=== PATIENT | female | born 1960 | race African-American/Black ===

== ENCOUNTER 2017-11-17 11:26 | Emergency (ER) | payer SELFPAY ==
[2017-11-17] MEDS ORDERED: ASPIRIN 81 MG TABLET, CHEWABLE PO ONE (12:08)
--- NOTE | 2017-11-17 12:09 | ER Document Report ---
ED Medical Screen (RME) - General Chief Complaint: Chest Pain Stated Complaint: CHEST PAIN Time Seen by Provider: 11/17/17 12:03 Notes: RAPID MEDICAL EVALUATION DISCLOSURE I have seen this patient as part of a Rapid Medical Evaluation and, if applicable, placed any initially appropriate orders. The patient will be seen and fully evaluated, including a full history and physical exam, by a provider ( in Main ED or Fast Track) when a room becomes available. 57-year-old female here with left-sided chest pain shortness of breath lightheadedness ongoing since this morning. Pain is worse with breathing but has not really noticed much worsening with exertion. She has tried some Tums for the symptoms with some relief. Has a history of A. fib and heart murmur. She came in because the lightheadedness and shortness of breath was most concerning to her. Exam CTAB RRR TRAVEL OUTSIDE OF THE [place] IN LAST 30 DAYS: No Physical Exam - Vital signs Vitals: Temp Pulse Resp BP Pulse Ox 99.2 F 69 18 185/98 H 98 11/17/17 11:44 11/17/17 11:44 11/17/17 11:44 11/17/17 11:44 11/17/17 11:44 Course - Vital Signs Vital signs: Temp Pulse Resp BP Pulse Ox 99.2 F 69 18 185/98 H 98 11/17/17 11:44 11/17/17 11:44 11/17/17 11:44 11/17/17 11:44 11/17/17 11:44
[2017-11-17] MEDS ORDERED: NITROGLYCERIN 2% OINTMENT 1 GM PACKET TP ONE (13:13)
[2017-11-17] MEDS ORDERED: ACETAMINOPHEN 325 MG TABLET PO ONE (13:13)
[2017-11-17 13:19] LABS: ABSOLUTE BASOPHILS # (AUTO) 0.1 10^3/uL (0.0-0.2); ABSOLUTE EOSINOPHILS # (AUTO) 0.2 10^3/uL (0.0-0.6); ABSOLUTE LYMPHOCYTES (AUTO) 2.7 10^3/uL (0.5-4.7); ABSOLUTE MONOCYTES (AUTO) 0.5 10^3/uL (0.1-1.4); ABSOLUTE NEUT (AUTO) 4.7 10^3/uL (1.7-8.2); BASOPHILS % (AUTO) 0.7 % (0-2); EOSINOPHILS % (AUTO) 2.3 % (0-6); HEMATOCRIT 36.7 % (36.0-47.0); HEMOGLOBIN 12.1 g/dL (12.0-15.5); LYMPHOCYTES % (AUTO) 33.4 % (13-45); MEAN CORPUSCULAR HEMOGLOBIN 24.2 pg (27.0-33.4); MEAN CORPUSCULAR HGB CONC 32.9 g/dL (32.0-36.0); MEAN CORPUSCULAR VOLUME 74 fl (80-97); PLATELET COUNT 280 10^3/uL (150-450); RED BLOOD COUNT 4.98 10^6/uL (3.72-5.28); RED CELL DISTRIBUTION WIDTH 17.4 % (11.5-14.0); SEGMENTED NEUTROPHILS % (AUTO) 57.6 % (42-78); TOTAL CELLS COUNTED % (AUTO) 100 %; WHITE BLOOD COUNT 8.1 10^3/uL (4.0-10.5)
--- NOTE | 2017-11-17 13:26 | RADIOLOGY REPORT (SQ) ---
EXAM DESCRIPTION: CHEST 2 VIEWS COMPLETED DATE/TIME: 11/17/2017 12:50 pm REASON FOR STUDY: CP SOB COMPARISON: None. EXAM PARAMETERS: NUMBER OF VIEWS: two views TECHNIQUE: Digital Frontal and Lateral radiographic views of the chest acquired. RADIATION DOSE: NA LIMITATIONS: none FINDINGS: LUNGS AND PLEURA: No opacities, masses or pneumothorax. No pleural effusion. MEDIASTINUM AND HILAR STRUCTURES: No masses or contour abnormalities. HEART AND VASCULAR STRUCTURES: Heart normal size. No evidence for failure. BONES: No acute findings. HARDWARE: None in the chest. OTHER: No other significant finding. IMPRESSION: NO ACUTE RADIOGRAPHIC FINDING IN THE CHEST. TECHNICAL DOCUMENTATION: JOB ID: [id number] [employer]- All Rights Reserved Reading location - IP/workstation name: [email or web address]
[2017-11-17 13:41] LABS: ALANINE AMINOTRANSFERASE 28 U/L (9-52); ALBUMIN 4.2 g/dL (3.5-5.0); ALKALINE PHOSPHATASE 97 U/L (38-126); ANION GAP 10 (5-19); ASPARTATE AMINO TRANSFERASE 27 U/L (14-36); BILIRUBIN,DIRECT 0.4 mg/dL (0.0-0.4); BILIRUBIN,TOTAL 0.5 mg/dL (0.2-1.3); BLOOD UREA NITROGEN 12 mg/dL (7-20); CALCIUM 9.2 mg/dL (8.4-10.2); CARBON DIOXIDE 28 mmol/L (22-30); CHLORIDE 106 mmol/L (98-107); GLUCOSE 99 mg/dL (75-110); LIPASE 35.8 U/L (23-300); POTASSIUM 4.4 mmol/L (3.6-5.0); SODIUM 143.6 mmol/L (137-145); TOTAL PROTEIN 7.4 g/dL (6.3-8.2)
[2017-11-17] MEDS ORDERED: HYDRALAZINE HCL 25 MG TABLET PO ONE (14:39)
--- NOTE | 2017-11-17 14:39 | ER Document Report ---
ED Cardiac - General Chief Complaint: Chest Pain Stated Complaint: CHEST PAIN Time Seen by Provider: 11/17/17 12:03 Mode of Arrival: Ambulatory Information source: Patient Notes: Patient is a 57-year-old female with a history of A. fib and heart murmur who presents to the ER today for left sided chest pain that radiated up from her epigastric region and made her left arm numb and tingly that started at 10 AM this morning. Patient states that she was at rest during this time. Patient denies any radiation into the neck or back. Patient admits to some nausea and some mild shortness of breath with this but no vomiting. Patient used to be on medications for hypertension and hyperlipidemia but stopped them. Patient used to be on blood thinners but states she was taken off by her doctor in [place]. Patient moved here recently and has not followed up with anybody about her chronic medical conditions. Patient has never had a heart attack or stroke and has never been a smoker. Patient denies history of diabetes. TRAVEL OUTSIDE OF THE U[place] IN LAST 30 DAYS: No - Related Data Allergies/Adverse Reactions: Penicillins Allergy (Mild, Verified 11/17/17 12:09) Hives shellfish derived Allergy (Mild, Verified 11/17/17 12:09) Hives Past Medical History - General Information source: Patient - Social History Smoking Status: Never Smoker Chew tobacco use (# tins/day): No Frequency of alcohol use: None Drug Abuse: None Family History: Reviewed & Not Pertinent Patient has suicidal ideation: No Patient has homicidal ideation: No Renal/ Medical History: Denies: Hx Peritoneal Dialysis Review of Systems - Review of Systems Constitutional: No symptoms reported EENT: No symptoms reported Cardiovascular: See HPI Respiratory: No symptoms reported Gastrointestinal: No symptoms reported Genitourinary: No symptoms reported Female Genitourinary: No symptoms reported Musculoskeletal: No symptoms reported Skin: No symptoms reported Hematologic/Lymphatic: No symptoms reported Neurological/Psychological: No symptoms reported Physical Exam - Vital signs Vitals: Temp Pulse Resp BP Pulse Ox 99.2 F 69 18 185/98 H 98 11/17/17 11:44 11/17/17 11:44 11/17/17 11:44 11/17/17 11:44 11/17/17 11:44 - Notes Notes: PHYSICAL EXAMINATION: GENERAL: Well-appearing and in no acute distress. HEAD: Atraumatic, normocephalic. EYES: Pupils equal round and reactive to light, extraocular movements intact, sclera anicteric, conjunctiva are normal. ENT: Airway patent NECK: Normal range of motion, supple without lymphadenopathy LUNGS: CTAB and equal. No wheezes rales or rhonchi. HEART: Sternum and left chest tender to palpation, regular rate and rhythm without murmurs ABDOMEN: Soft, no tenderness. No guarding, no rebound BACK: no vertebral tenderness, normal ROM GI/: no CVA tenderness EXTREMITIES: Normal range of motion, no pitting edema. No cyanosis. NEUROLOGICAL: Cranial nerves grossly intact. Normal sensory/motor exams. PSYCH: Normal mood, normal affect. SKIN: Warm, Dry, normal turgor, no rashes or lesions noted Course - Re-evaluation Re-evalutation: 11/17/17 18:07 Patient continues to ask me if she can eat, she looks very well but does continue to tell me she has chest pain when I asked. Patient states the nitroglycerin paste took away her chest pain. She was given aspirin here. Patient had a normal EKG, chest x-ray and normal set of troponins 2. I did strongly advised that due to patient's history she stay to be admitted for her chest pain as it is very suspect of being cardiac in nature, patient strongly declines. Patient has a flight to [place] first thing in the morning and "will not miss it." Strongly advised that she return with any worsening symptoms, she agrees. Patient was insistent that she eat while here and is smiling and happy appearing. She does not complain of chest pain until I ask her. I did advise her that it was against my medical advice that she leave although she did have 2 normal troponins at least 3 hours apart today. - Vital Signs Vital signs: Temp Pulse Resp BP Pulse Ox 99.2 F 69 16 142/74 H 99 11/17/17 11:44 11/17/17 11:44 11/17/17 16:15 11/17/17 16:01 11/17/17 16:15 - Laboratory Result Diagrams: 11/17/17 13:03 11/17/17 13:03 Laboratory results interpreted by me: 11/17/17 13:03 MCV 74 L MCH 24.2 L RDW 17.4 H Discharge - Discharge Clinical Impression: Chest pain Qualifiers: Chest pain type: unspecified Qualified Code(s): R07.9 - Chest pain, unspecified Condition: Stable Disposition: HOME, SELF-CARE Instructions: Chest Pain of Unclear Cause ([facility]) Additional Instructions: Return immediately for any new or worsening symptoms. Follow up with primary care provider, call tomorrow to make followup appointment. Prescriptions: Omeprazole Magnesium [Prilosec Otc] 20 mg PO BID #30 tablet.dr Referrals: SOCORRO RAMIREZ MD [ACTIVE STAFF] - Follow up as needed
[2017-11-17 19:00] VITALS: BP 165/91
--- NOTE | 2017-11-17 20:24 | EKG REPORT ---
SEVERITY:- BORDERLINE ECG - SINUS RHYTHM BORDERLINE T ABNORMALITIES, ANTERIOR LEADS : Confirmed by: Fani Hall MD 17-Nov-2017 20:24:15
== END 2017-11-17 18:15 | disposition home or self-care (01) ==
LOC: ER 11:26
DX: R07.9 Chest pain, unspecified (principal); R10.13 Epigastric pain; R11.0 Nausea; R06.02 Shortness of breath; I48.91 Unspecified atrial fibrillation; I10 Essential (primary) hypertension; E78.5 Hyperlipidemia, unspecified
CPT/HCPCS: 36415; 71046; 80053; 83690; 84484; 85025; 85379; 93005; 93010; 99285

== ENCOUNTER 2018-05-04 18:06 | Observation (INO) | payer SELFPAY ==
[2018-05-04] MEDS ORDERED: KETOROLAC TROMETHAMINE INJ/PF 30 MG/1 ML SDV IV ONE (18:43)
[2018-05-04] MEDS ORDERED: FENTANYL CITRATE INJ/PF 100 MCG/2 ML AMPUL IV ONE (18:44)
--- NOTE | 2018-05-04 19:16 | RADIOLOGY REPORT (SQ) ---
EXAM DESCRIPTION: CHEST 2 VIEWS COMPLETED DATE/TIME: 05/04/2018 7:07 pm REASON FOR STUDY: Chest Pain COMPARISON: 11/17/2017 EXAM PARAMETERS: NUMBER OF VIEWS: two views TECHNIQUE: Digital Frontal and Lateral radiographic views of the chest acquired. RADIATION DOSE: NA LIMITATIONS: none FINDINGS: LUNGS AND PLEURA: No opacities, masses or pneumothorax. No pleural effusion. MEDIASTINUM AND HILAR STRUCTURES: No masses or contour abnormalities. HEART AND VASCULAR STRUCTURES: Heart normal size. No evidence for failure. BONES: No acute findings. HARDWARE: None in the chest. OTHER: No other significant finding. IMPRESSION: NO ACUTE RADIOGRAPHIC FINDING IN THE CHEST. TECHNICAL DOCUMENTATION: JOB ID: [id number] [employer]- All Rights Reserved Reading location - IP/workstation name: [email or web address]
--- NOTE | 2018-05-04 19:23 | RADIOLOGY REPORT (SQ) ---
EXAM DESCRIPTION: CT HEAD WITHOUT COMPLETED DATE/TIME: 05/04/2018 7:13 pm REASON FOR STUDY: headache COMPARISON: None. TECHNIQUE: Axial images acquired through the brain without intravenous contrast. Images reviewed wi th bone, brain and subdural windows. Additional sagittal and coronal reconstructions were generated. Images stored on PACS. All CT scanners at this facility use dose modulation, iterative reconstruction, and/or weight based d osing when appropriate to reduce radiation dose to as low as reasonably achievable (ALARA). [facility]: Dose Right [facility]: CareDose [facility]: Dose Right [facility]: Teradose 4D [facility]: Declara RADIATION DOSE: CT Rad equipment meets quality standard of care and radiation dose reduction techniq ues were employed. CTDIvol: 53.2 mGy. DLP: 1044 mGy-cm. mGy. LIMITATIONS: None. FINDINGS: VENTRICLES: Normal size and contour. CEREBRUM: No masses. No hemorrhage. No midline shift. No evidence for acute infarction. Normal gra y/white matter differentiation. No areas of low density in the white matter. CEREBELLUM: No masses. No hemorrhage. No alteration of density. No evidence for acute infarction. EXTRAAXIAL SPACES: No fluid collections. No masses. ORBITS AND GLOBE: No intra- or extraconal masses. Normal contour of globe without masses. CALVARIUM: No fracture. PARANASAL SINUSES: No fluid or mucosal thickening. SOFT TISSUES: No mass or hematoma. OTHER: No other significant finding. IMPRESSION: NORMAL BRAIN CT WITHOUT CONTRAST. EVIDENCE OF ACUTE STROKE: NO. COMMENT: Quality ID # [id number]: Final reports with documentation of one or more dose reduction techniques (e.g., Automated exposure control, adjustment of the mA and/or kV according to patient size, use of iterative reconstruction technique) TECHNICAL DOCUMENTATION: JOB ID: [id number] [employer]- All Rights Reserved Reading location - IP/workstation name: [email or web address]
[2018-05-04 19:25] LABS: ABSOLUTE BASOPHILS # (AUTO) 0.1 10^3/uL (0.0-0.2); ABSOLUTE EOSINOPHILS # (AUTO) 0.2 10^3/uL (0.0-0.6); ABSOLUTE LYMPHOCYTES (AUTO) 2.8 10^3/uL (0.5-4.7); ABSOLUTE MONOCYTES (AUTO) 0.7 10^3/uL (0.1-1.4); ABSOLUTE NEUT (AUTO) 5.9 10^3/uL (1.7-8.2); BASOPHILS % (AUTO) 1.2 % (0-2); EOSINOPHILS % (AUTO) 2.5 % (0-6); HEMATOCRIT 40.3 % (36.0-47.0); HEMOGLOBIN 12.9 g/dL (12.0-15.5); LYMPHOCYTES % (AUTO) 28.5 % (13-45); MEAN CORPUSCULAR HEMOGLOBIN 24.5 pg (27.0-33.4); MEAN CORPUSCULAR HGB CONC 32.1 g/dL (32.0-36.0); MEAN CORPUSCULAR VOLUME 77 fl (80-97); MONOCYTES % (AUTO) 7.5 % (3-13); PLATELET COUNT 312 10^3/uL (150-450); RED BLOOD COUNT 5.27 10^6/uL (3.72-5.28); RED CELL DISTRIBUTION WIDTH 16.1 % (11.5-14.0); SEGMENTED NEUTROPHILS % (AUTO) 60.3 % (42-78); TOTAL CELLS COUNTED % (AUTO) 100 %; WHITE BLOOD COUNT 9.7 10^3/uL (4.0-10.5)
[2018-05-04 19:30] LABS: INTERNATIONAL RATION (INR) 0.98; PROTHROMBIN TIME 13.5 SEC (11.4-15.4)
[2018-05-04] MEDS ORDERED: NITROGLYCERIN 0.4 MG/TAB 25 TAB/BOTTLE SL ONE (19:35)
[2018-05-04] MEDS ORDERED: ONDANSETRON HCL INJ/PF 4 MG/2 ML SDV IV ONE (19:36)
[2018-05-04 20:03] LABS: ALANINE AMINOTRANSFERASE 21 U/L (9-52); ALBUMIN 4.3 g/dL (3.5-5.0); ALKALINE PHOSPHATASE 109 U/L (38-126); ANION GAP 7 (5-19); ASPARTATE AMINO TRANSFERASE 19 U/L (14-36); BILIRUBIN,DIRECT 0.3 mg/dL (0.0-0.4); BILIRUBIN,TOTAL 0.3 mg/dL (0.2-1.3); BLOOD UREA NITROGEN 15 mg/dL (7-20); CALCIUM 9.7 mg/dL (8.4-10.2); CARBON DIOXIDE 29 mmol/L (22-30); CHLORIDE 104 mmol/L (98-107); CREATINE KINASE 144 U/L (30-135); GLUCOSE 94 mg/dL (75-110); SODIUM 139.7 mmol/L (137-145); TOTAL PROTEIN 7.5 g/dL (6.3-8.2)
[2018-05-04 20:14] LABS: CREATINE KINASE MB 0.92 ng/mL (<4.55); TROPONIN I < 0.012 ng/mL
--- NOTE | 2018-05-04 20:18 | ER Document Report ---
ED Medical Screen (RME) - General Chief Complaint: Chest Pain Stated Complaint: CHEST PAIN Time Seen by Provider: 05/04/18 18:43 TRAVEL OUTSIDE OF THE U.S. IN LAST 30 DAYS: No - Related Data Allergies/Adverse Reactions: Penicillins Allergy (Mild, Verified 05/04/18 18:14) Hives shellfish derived Allergy (Mild, Verified 05/04/18 18:14) Hives Past Medical History - Social History Chew tobacco use (# tins/day): No Frequency of alcohol use: None Drug Abuse: None - Past Medical History Cardiac Medical History: Reports: Hx Atrial Fibrillation, Hx Hypertension Renal/ Medical History: Denies: Hx Peritoneal Dialysis Physical Exam - Vital signs Vitals: Temp Pulse Resp BP Pulse Ox 98.6 F 70 16 178/89 H 99 05/04/18 18:25 05/04/18 18:25 05/04/18 18:25 05/04/18 18:25 05/04/18 18:25 Course - Re-evaluation Re-evalutation: 57-year-old female that presents for evaluation of pain in the chest. She also notes that she has been having a persistent headache which makes her is concerned that she might be having a stroke. She does have a history of hypertension and other medical comorbidities. I have seen and evaluated this patient in rapid screening examination. I have initiated a workup. I plan for this patient undergo further evaluation and disposition determination by secondary provider. - Vital Signs Vital signs: Temp Pulse Resp BP Pulse Ox 98.6 F 70 16 178/89 H 99 05/04/18 18:25 05/04/18 18:25 05/04/18 18:25 05/04/18 18:25 05/04/18 18:25 - Laboratory Result Diagrams: 05/04/18 19:20 05/04/18 19:35 Laboratory results interpreted by me: 05/04/18 05/04/18 19:20 19:35 MCV 77 L MCH 24.5 L RDW 16.1 H Est GFR (Non-Af Amer) 56 L Creatine Kinase 144 H
[2018-05-04] MEDS ORDERED: NITROGLYCERIN 0.4 MG/TAB 25 TAB/BOTTLE SL PRN (20:36)
--- NOTE | 2018-05-04 20:37 | ER Document Report ---
ED Cardiac - General Chief Complaint: Chest Pain Stated Complaint: CHEST PAIN Time Seen by Provider: 05/04/18 18:43 Notes: Patient is a 57-year-old female presents the emergency department complaining of the left sharp chest pain. Patient states yesterday after worship she developed a generalized headache. States shortly after that she noticed she had sharp chest pain underneath her left breast. Patient states yesterday she did take 325 mg of aspirin. Patient states she was able to get some sleep last night but inevitably the pain in the left chest has gotten worse. Patient states it is now moved to his left jaw. Patient states she is also noting that the chest pain gets worse upon exertion. States 2 hours prior to arrival to the emergency room she did take another 325 mg of aspirin. Patient states she does recall having a cardiac stress test but believes it was over a year ago. Patient states she was told over a year ago during that cardiac stress test it was okay for her to stop her Coumadin. Patient states she has not taking Coumadin in over a year for her atrial fibrillation. Patient was noted to be to this facility in November and at that point in time had chest pain and patient states she has not followed up with left AMA after provider wanted to admit her for chest pain rule out. Any provider since that incident. Patient states she no longer lives in [place] and lives in [place] full- time. Patient states she does not have her primary care provider or medical records technician. Past medical history: Hypertension, atrial fibrillation, lupus Medications: Aspirin Patient states she is supposed to be taking losartan but states the pharmacy called her on Friday and told her that the losartan she had filled was recalled so she was supposed to stop it. States she has not gotten her losartan refilled. Allergies: Penicillin TRAVEL OUTSIDE OF THE [place].S[place] IN LAST 30 DAYS: No - Related Data Allergies/Adverse Reactions: Penicillins Allergy (Mild, Verified 05/04/18 18:14) Hives shellfish derived Allergy (Mild, Verified 05/04/18 18:14) Hives Past Medical History - General Information source: Patient - Social History Smoking Status: Former Smoker Chew tobacco use (# tins/day): No Frequency of alcohol use: None Drug Abuse: None Family History: Reviewed & Not Pertinent Patient has suicidal ideation: No Patient has homicidal ideation: No - Past Medical History Cardiac Medical History: Reports: Hx Atrial Fibrillation, Hx Hypertension Renal/ Medical History: Denies: Hx Peritoneal Dialysis Review of Systems - Review of Systems Constitutional: No symptoms reported EENT: No symptoms reported Cardiovascular: See HPI Respiratory: See HPI Gastrointestinal: No symptoms reported Genitourinary: No symptoms reported Female Genitourinary: No symptoms reported Musculoskeletal: No symptoms reported Skin: No symptoms reported Hematologic/Lymphatic: No symptoms reported Neurological/Psychological: No symptoms reported Physical Exam - Vital signs Vitals: Temp Pulse Resp BP Pulse Ox 98.6 F 70 16 178/89 H 99 05/04/18 18:25 05/04/18 18:25 05/04/18 18:25 05/04/18 18:25 05/04/18 18:25 - Notes Notes: GENERAL: Alert, interacts well. No acute distress. HEAD: Normocephalic, atraumatic. EYES: Pupils equal, round, and reactive to light. Extraocular movements intact. ENT: Oral mucosa moist, tongue midline. NECK: Full range of motion. Supple. Trachea midline. LUNGS: Clear to auscultation bilaterally, no wheezes, rales, or rhonchi. No respiratory distress. HEART: Regular rate and rhythm. No murmur CHEST: No crepitus felt, no erythema or ecchymosis noted anterior posterior trunk ABDOMEN: Obese soft, non-tender. Non-distended. Bowel sounds present in all 4 quadrants. EXTREMITIES: Moves all 4 extremities spontaneously. No edema, normal radial and dorsalis pedis pulses bilaterally. No cyanosis. BACK: no cervical, thoracic, lumbar midline tenderness. No saddle anesthesia, normal distal neurovascular exam. NEUROLOGICAL: Alert and oriented x3. Normal speech. cranial nerves II through XII grossly intact PSYCH: Normal affect, normal mood. SKIN: Warm, dry, normal turgor. No rashes or lesions noted. Course - Re-evaluation Re-evalutation: Head CT, fentanyl and Toradol were ordered from [facility] provider working in triage. They were already administered and CT was already taken upon me taking over care of the patient. 05/04/18 20:[address] was ordered from [facility] provider, it is negative for CVA, intracranial bleeding or skull fractures. Patient's initial troponin was negative in the emergency room. Her EKG shows a sinus rhythm rate of [address] segment elevations or depressions. I ordered nitroglycerin due to patient continuing with left chest pain radiating to her jaw. Nitroglycerin has made the patient pain-free at this time. Discussed case with hospitalist Dr. Marroquin who will admit the patient for chest pain rule out. - Vital Signs Vital signs: Temp Pulse Resp BP Pulse Ox 98.2 F 61 18 108/56 L 97 05/05/18 03:47 05/05/18 03:47 05/05/18 03:47 05/05/18 03:47 05/05/18 03:47 - Laboratory Result Diagrams: 05/04/18 19:20 05/04/18 19:35 Laboratory results interpreted by me: 05/04/18 05/04/18 19:20 19:35 MCV 77 L MCH 24.5 L RDW 16.1 H Est GFR (Non-Af Amer) 56 L Creatine Kinase 144 H Discharge - Discharge Clinical Impression: Chest pain Qualifiers: Chest pain type: unspecified Qualified Code(s): R07.9 - Chest pain, unspecified Condition: Stable Disposition: ADMITTED INPATIENT Admitting Provider: Hospitalist - Dr. Marroquin Unit Admitted: Telemetry
[2018-05-04] MEDS: TRAMADOL HCL 50 MG TABLET PO PRN (22:23)
[2018-05-04] MEDS: AMLODIPINE BESYLATE 10 MG TABLET PO SCH (22:24)
[2018-05-04] MEDS: ATORVASTATIN CALCIUM 80 MG TABLET PO SCH (22:24)
--- NOTE | 2018-05-04 23:24 | EKG REPORT ---
SEVERITY:- BORDERLINE ECG - SINUS RHYTHM BORDERLINE T ABNORMALITIES, ANT-LAT LEADS : Confirmed by: Dash Bright 04-May-2018 23:23:10
[2018-05-05] MEDS ORDERED: HYDRALAZINE HCL INJ/PF 20 MG/1 ML SDV IV PRN (01:54)
--- NOTE | 2018-05-05 02:00 | PDOC H&P ---
History of Present Illness Admission Date/PCP: 05/04/18 20:39 Patient complains of: Chest pain History of Present Illness: AUGUST GARCIA is a 57 year old female with a past medical history of hypertension who presents with 2 days of intermittent chest pain occurring while at rest, initially sharp becoming dull like a"fist" in nature on the left side with radiation to the jaw. It is associated with palpitations, shortness of breath with exertion but no nausea or vomiting. Patient aspirin and medication for acid reflux without significant improvement. She unable to identify exacerbating factors but in the emergency room receives nitroglycerin which so mewhat helps. Patient admits previous stress test of unknown result out of state, greater than year 1 year ago. Past Medical History Cardiac Medical History: Reports: Atrial Fibrillation, Hypertension GI Medical History: Reports: Gastroesophageal Reflux Disease Musculoskeltal Medical History: Reports: Arthritis Hematology: Reports: Anemia Social History Information Source: Patient, [facility] Records Smoking Status: Former Smoker Frequency of Alcohol Use: None Drugs: None - Advance Directive Resuscitation Status: Full Code Family History Family History: Hypertension. denies: DM Parental Family History Reviewed: Yes Children Family History Reviewed: Yes Sibling(s) Family History Reviewed.: Yes Medication/Allergy Home Medications: Omeprazole Magnesium [Prilosec Otc] 20 mg PO BID #30 tablet. 11/17/17 Allergies/Adverse Reactions: Penicillins Allergy (Mild, Verified 05/04/18 18:14) Hives shellfish derived Allergy (Mild, Verified 05/04/18 18:14) Hives Review of Systems Constitutional: ABSENT: chills, fever(s), headache(s), weight gain, weight loss Eyes: ABSENT: visual disturbances Ears: ABSENT: hearing changes Cardiovascular: ABSENT: chest pain, dyspnea on exertion, edema, orthropnea, palpitations Respiratory: ABSENT: cough, hemoptysis Gastrointestinal: ABSENT: abdominal pain, constipation, diarrhea, hematemesis, hematochezia, nausea, vomiting Genitourinary: ABSENT: dysuria, hematuria Musculoskeletal: ABSENT: joint swelling Integumentary: ABSENT: rash, wounds Neurological: ABSENT: abnormal gait, abnormal speech, confusion, dizziness, focal weakness, syncope Psychiatric: ABSENT: anxiety, depression, homidical ideation, suicidal ideation Endocrine: ABSENT: cold intolerance, heat intolerance, polydipsia, polyuria Hematologic/Lymphatic: ABSENT: easy bleeding, easy bruising Physical Exam Vital Signs: Temp Pulse Resp BP Pulse Ox 98.1 F 58 L 18 164/88 H 99 05/04/18 22:40 05/04/18 22:47 05/04/18 22:40 05/04/18 22:40 05/04/18 22:40 Intake & Output 05/03/18 05/04/18 05/05/18 11:59 11:59 11:59 Weight 114.7 kg General appearance: PRESENT: no acute distress, well-developed, well-nourished Head exam: PRESENT: atraumatic, normocephalic Eye exam: PRESENT: conjunctiva pink, EOMI, PERRLA. ABSENT: scleral icterus Ear exam: PRESENT: normal external ear exam Mouth exam: PRESENT: moist, tongue midline Neck exam: ABSENT: carotid bruit, JVD, lymphadenopathy, thyromegaly Respiratory exam: PRESENT: clear to auscultation misael. ABSENT: rales, rhonchi, wheezes Cardiovascular exam: PRESENT: RRR. ABSENT: diastolic murmur, rubs, systolic murmur Pulses: PRESENT: normal dorsalis pedis pul Vascular exam: PRESENT: normal capillary refill GI/Abdominal exam: PRESENT: normal bowel sounds, soft. ABSENT: distended, g uarding, mass, organolmegaly, rebound, tenderness Rectal exam: PRESENT: deferred Extremities exam: PRESENT: full ROM. ABSENT: calf tenderness, clubbing, pedal edema Musculoskeletal exam: PRESENT: other - Reproducible chest wall pain to the left anterior lateral ribs 8 through 11 Neurological exam: PRESENT: alert, awake, oriented to person, oriented to place, oriented to time, oriented to situation, CN II-XII grossly intact. ABSENT: motor sensory deficit Psychiatric exam: PRESENT: appropriate affect, normal mood. ABSENT: homicidal ideation, suicidal ideation Skin exam: PRESENT: dry, intact, warm. ABSENT: cyanosis, rash Results Laboratory Results: 05/04/18 19:20 05/04/18 19:35 05/04/18 05/04/18 05/04/18 19:20 19:20 19:35 WBC 9.7 RBC 5.27 Hgb 12.9 Hct 40.3 MCV 77 L MCH 24.5 L MCHC 32.1 RDW 16.1 H Plt Count 312 Seg Neutrophils % 60.3 Lymphocytes % 28.5 Monocytes % 7.5 Eosinophils % 2.5 Basophils % 1.2 Absolute Neutrophils 5.9 Absolute Lymphocytes 2.8 Absolute Monocytes 0.7 Absolute Eosinophils 0.2 Absolute Basophils 0.1 Sodium Cancelled 139.7 Potassium Cancelled 4.0 Chloride Cancelled 104 Carbon Dioxide Cancelled 29 Anion Gap Cancelled 7 BUN Cancelled 15 Creatinine Cancelled 1.03 Est GFR ( Amer) Cancelled > 60 Est GFR (Non-Af Amer) Cancelled 56 L Glucose Cancelled 94 Calcium Cancelled 9.7 Total Bilirubin Cancelled 0.3 AST Cancelled 19 ALT Cancelled 21 Alkaline Phosphatase Cancelled 109 Total Protein Cancelled 7.5 Albumin Cancelled 4.3 05/04/18 05/04/18 05/04/18 19:20 19:20 19:35 Creatine Kinase Cancelled 144 H CK-MB (CK-2) Cancelled Troponin I Cancelled 05/04/18 19:35 Creatine Kinase CK-MB (CK-2) 0.92 Troponin I < 0.012 Impressions: Chest X-Ray 05/04/18 00:00 IMPRESSION: NO ACUTE RADIOGRAPHIC FINDING IN THE CHEST. Head CT 05/04/18 18:43 IMPRESSION: NORMAL BRAIN CT WITHOUT CONTRAST. EVIDENCE OF ACUTE STROKE: NO. Assessment & Plan - Diagnosis (1) Chest pain Qualifiers: Chest pain type: unspecified Qualified Code(s): R07.9 - Chest pain, unsp ecified Is this a current diagnosis for this admission?: Yes Plan: Atypical chest pain though the patient's pain is atypical there are multiple risk factors for coronary artery disease and subsequently will observe and evaluation of acute coronary syndrome versus coronary artery disease with anginal equivalents. Cardiac monitoring blood pressure Q6 hours ,TSH, lipid profile, serial cardiac enzymes and cardiac stress test (2) Hypertension Is this a current diagnosis for this admission?: Yes Plan: Lopressor, Norvasc and as needed hydralazine ordered - Time Time Spent: 50 to 70 Minutes
[2018-05-05 02:08] LABS: CREATINE KINASE MB 0.88 ng/mL (<4.55)
[2018-05-05 02:26] LABS: TROPONIN I < 0.012 ng/mL
[2018-05-05] MEDS ORDERED: DIPHENHYDRAMINE 2.5 MG/ML ORAL SOLN 60 ML PO ONE (04:15)
[2018-05-05] MEDS ORDERED: DIPHENHYDRAMINE HCL 25 MG/10 ML UDC ONE (04:51)
[2018-05-05 07:31] LABS: ABSOLUTE BASOPHILS # (AUTO) 0.1 10^3/uL (0.0-0.2); ABSOLUTE EOSINOPHILS # (AUTO) 0.3 10^3/uL (0.0-0.6); ABSOLUTE MONOCYTES (AUTO) 0.7 10^3/uL (0.1-1.4); ABSOLUTE NEUT (AUTO) 5.5 10^3/uL (1.7-8.2); BASOPHILS % (AUTO) 0.7 % (0-2); EOSINOPHILS % (AUTO) 2.7 % (0-6); HEMATOCRIT 37.1 % (36.0-47.0); HEMOGLOBIN 12.1 g/dL (12.0-15.5); LYMPHOCYTES % (AUTO) 31.4 % (13-45); MEAN CORPUSCULAR HEMOGLOBIN 24.7 pg (27.0-33.4); MEAN CORPUSCULAR HGB CONC 32.5 g/dL (32.0-36.0); MEAN CORPUSCULAR VOLUME 76 fl (80-97); MONOCYTES % (AUTO) 7.8 % (3-13); PLATELET COUNT 322 10^3/uL (150-450); RED BLOOD COUNT 4.88 10^6/uL (3.72-5.28); SEGMENTED NEUTROPHILS % (AUTO) 57.4 % (42-78); TOTAL CELLS COUNTED % (AUTO) 100 %; WHITE BLOOD COUNT 9.5 10^3/uL (4.0-10.5)
[2018-05-05 07:33] LABS: ANION GAP 8 (5-19); BLOOD UREA NITROGEN 18 mg/dL (7-20); CALCIUM 9.2 mg/dL (8.4-10.2); CARBON DIOXIDE 26 mmol/L (22-30); CHLORIDE 105 mmol/L (98-107); CHOLESTEROL 178.95 mg/dL (0-200); CREATINE KINASE 119 U/L (30-135); GLUCOSE 110 mg/dL (75-110); SODIUM 139.4 mmol/L (137-145); TRIGLYCERIDES 181 mg/dL (<150)
[2018-05-05 07:43] LABS: DIRECT LDL 89 mg/dL (<100)
[2018-05-05 07:44] LABS: CREATINE KINASE MB 0.78 ng/mL (<4.55); TROPONIN I < 0.012 ng/mL; VLDL CHOLESTEROL 36.2 mg/dL (10-31)
[2018-05-05] MEDS ORDERED: METOPROLOL SUCCINATE 25 MG TAB.SR.24H PO SCH (10:00)
[2018-05-05] MEDS: TRAMADOL HCL 50 MG TABLET PO PRN (10:19)
[2018-05-05] MEDS: LANSOPRAZOLE 15 MG TAB.RAP.DR PO SCH ×2 (12:38→18:14)
[2018-05-05] MEDS: AMLODIPINE BESYLATE 10 MG TABLET PO SCH (12:38)
--- NOTE | 2018-05-05 12:58 | PDOC PROGRESS REPORT ---
Subjective Progress Note for:: 05/05/18 Subjective:: AUGUST GARCIA is a 57 year old female with a past medical history of hypertension who presents with 2 days of intermittent chest pain occurring while at rest, initially sharp becoming dull like a"fist" in nature on the left side with radiation to the jaw. Her 3 sets of cardiac enzymes are negative and there is no EKG changes. Patient scheduled to have cardiac stress test in the morning. Reason For Visit: CP Physical Exam Vital Signs: Temp Pulse Resp BP Pulse Ox 98.2 F 59 L 16 135/90 H 99 05/05/18 11:32 05/05/18 11:32 05/05/18 11:32 05/05/18 11:32 05/05/18 11:32 Intake & Output 05/04/18 05/05/18 05/06/18 06:59 06:59 06:59 Intake Total 474 Balance 474 Weight 114.7 kg General appearance: PRESENT: no acute distress, well-developed, well-nourished Head exam: PRESENT: atraumatic, normocephalic Eye exam: PRESENT: conjunctiva pink, EOMI, PERRLA. ABSENT: scleral icterus Ear exam: PRESENT: normal external ear exam Mouth exam: PRESENT: moist, tongue midline Neck exam: ABSENT: carotid bruit, JVD, lymphadenopathy, thyromegaly Respiratory exam: PRESENT: clear to auscultation misael. ABSENT: rales, rhonchi, wheezes Cardiovascular exam: PRESENT: RRR. ABSENT: diastolic murmur, rubs, systolic murmur Pulses: PRESENT: normal dorsalis pedis pul Vascular exam: PRESENT: normal capillary refill GI/Abdominal exam: PRESENT: normal bowel sounds, soft. ABSENT: distended, guarding, mass, organolmegaly, rebound, tenderness Rectal exam: PRESENT: deferred Extremities exam: PRESENT: full ROM. ABSENT: calf tenderness, clubbing, pedal edema Neurological exam: PRESENT: alert, awake, oriented to person, oriented to place, oriented to time, oriented to situation, CN II-XII grossly intact. ABSENT: motor sensory deficit Psychiatric exam: PRESENT: appropriate affect, normal mood. ABSENT: homicidal ideation, suicidal ideation Skin exam: PRESENT: dry, intact, warm. ABSENT: cyanosis, rash Results Laboratory Results: 05/05/18 07:05 05/05/18 07:05 05/04/18 05/04/18 05/04/18 19:20 19:20 19:35 WBC 9.7 RBC 5.27 Hgb 12.9 Hct 40.3 MCV 77 L MCH 24.5 L MCHC 32.1 RDW 16.1 H Plt Count 312 Seg Neutrophils % 60.3 Lymphocytes % 28.5 Monocytes % 7.5 Eosinophils % 2.5 Basophils % 1.2 Absolute Neutrophils 5.9 Absolute Lymphocytes 2.8 Absolute Monocytes 0.7 Absolute Eosinophils 0.2 Absolute Basophils 0.1 Sodium Cancelled 139.7 Potassium Cancelled 4.0 Chloride Cancelled 104 Carbon Dioxide Cancelled 29 Anion Gap Cancelled 7 BUN Cancelled 15 Creatinine Cancelled 1.03 Est GFR ( Amer) Cancelled > 60 Est GFR (Non-Af Amer) Cancelled 56 L Glucose Cancelled 94 Calcium Cancelled 9.7 Total Bilirubin Cancelled 0.3 AST Cancelled 19 ALT Cancelled 21 Alkaline Phosphatase Cancelled 109 Total Protein Cancelled 7.5 Albumin Cancelled 4.3 Triglycerides Cholesterol LDL Cholesterol Direct VLDL Cholesterol HDL Cholesterol 05/05/18 05/05/18 07:05 07:05 WBC 9.5 RBC 4.88 Hgb 12.1 Hct 37.1 MCV 76 L MCH 24.7 L MCHC 32.5 RDW 16.0 H Plt Count 322 Seg Neutrophils % 57.4 Lymphocytes % 31.4 Monocytes % 7.8 Eosinophils % 2.7 Basophils % 0.7 Absolute Neutrophils 5.5 Absolute Lymphocytes 3.0 Absolute Monocytes 0.7 Absolute Eosinophils 0.3 Absolute Basophils 0.1 Sodium 139.4 Potassium 4.0 Chloride 105 Carbon Dioxide 26 Anion Gap 8 BUN 18 Creatinine 1.07 Est GFR ( Amer) > 60 Est GFR (Non-Af Amer) 53 L Glucose 110 Calcium 9.2 Total Bilirubin AST ALT Alkaline Phosphatase Total Protein Albumin Triglycerides 181 H Cholesterol 178.95 LDL Cholesterol Direct 89 VLDL Cholesterol 36.2 H HDL Cholesterol 36 L 05/04/18 05/04/18 05/04/18 19:20 19:20 19:35 Creatine Kinase Cancelled 144 H CK-MB (CK-2) Cancelled Troponin I Cancelled 05/04/18 05/05/18 05/05/18 19:35 01:29 07:05 Creatine Kinase CK-MB (CK-2) 0.92 0.88 0.78 Troponin I < 0.012 < 0.012 < 0.012 05/05/18 07:05 Creatine Kinase 119 CK-MB (CK-2) Troponin I Impressions: Chest X-Ray 05/04/18 00:00 IMPRESSION: NO ACUTE RADIOGRAPHIC FINDING IN THE CHEST. Head CT 05/04/18 18:43 IMPRESSION: NORMAL BRAIN CT WITHOUT CONTRAST. EVIDENCE OF ACUTE STROKE: NO. Assessment & Plan - Diagnosis (1) Chest pain Qualifiers: Chest pain type: unspecified Qualified Code(s): R07.9 - Chest pain, unspecified Is this a current diagnosis for this admission?: Yes Plan: Cardiac stress test in a.m. (2) Hypertension Qualifiers: Hypertension type: essential hypertension Qualified Code(s): I10 - Essential (primary) hypertension Is this a current diagnosis for this admission?: Yes Plan: Continue her home medication
[2018-05-05 13:52] LABS: CREATINE KINASE MB 0.72 ng/mL (<4.55)
[2018-05-05 13:57] LABS: TROPONIN I < 0.012 ng/mL
[2018-05-05] MEDS ORDERED: DIPHENHYDRAMINE HCL 50 MG/ML VIAL IV ONE (14:00)
[2018-05-05] MEDS: OXYCODONE-ACETAMINOPHEN 5-325 MG TABLET PO PRN (19:33)
[2018-05-05] MEDS: DIPHENHYDRAMINE HCL 50 MG/ML VIAL IV PRN (20:52)
[2018-05-05] MEDS: ATORVASTATIN CALCIUM 80 MG TABLET PO SCH (22:10)
[2018-05-05] MEDS: METOPROLOL SUCCINATE 25 MG TAB.SR.24H PO SCH (22:20)
[2018-05-06] MEDS: DIPHENHYDRAMINE HCL 50 MG/ML VIAL IV PRN ×2 (06:52→18:06)
[2018-05-06] MEDS: TRAMADOL HCL 50 MG TABLET PO PRN (07:55)
[2018-05-06] MEDS: LANSOPRAZOLE 15 MG TAB.RAP.DR PO SCH ×2 (10:59→17:24)
[2018-05-06] MEDS: METOPROLOL SUCCINATE 25 MG TAB.SR.24H PO SCH ×2 (10:59→21:30)
[2018-05-06] MEDS: AMLODIPINE BESYLATE 10 MG TABLET PO SCH (10:59)
--- NOTE | 2018-05-06 12:54 | DRAGON STRESS TEST REPORT ---
Intravenous Lexiscan Cardiolite stress test using single photon emmision computerized tomography. Date of procedure: 05/06/2018. Ordering Provider: Dr. Richardson. Patient's status: Inpatient Indication: Chest pain. Coronary risk factors: Age, hypertension, and dyslipidemia. Resting EKG: Sinus Rhythm. Minor nonspecific T changes in the anterior leads Stress EKG: No changes of ischemia. Reason for termination: Protocol. The patient had no chest pain or discomfort, and there were no arrhythmias seen. Conclusions: Normal EKG and hemodynamic response to IV Lexiscan. Nuclear data: At rest the patient was given 15.17 millicuries of technetium 99m sestamibi injected intravenously. As per protocol rest non gated SPECT images were obtained. Subsequently the patient was given intravenous Lexiscan at a dose of 0.4 mg in 5 mL intravenously, followed by flush with normal saline. Subsequently the stress dose of 46.2 millicuries of technetium 99m sestamibi was injected intravenously. As per protocol stress gated images were obtained. Nuclear interpretation: Review of images showed that all segments of the myocardium had normal perfusion at rest, and normal perfusion post stress with IV Lexiscan. All segments of the myocardium had normal motion, contraction, and thickening by gated study. T. I D. ratio was normal at 1.11. There is no transient ischemic dilatation of the left ventricle. Computer read rest, and stress left ventricular ejection fraction were 61 %, and 63 %, respectively. Conclusion: 1. There is no scintigraphic evidence of Lexiscan induced myocardial ischemia. 2. There is no scintigraphic evidence of myocardial infarction/scar. Recommendations: Aggressive risk factor modification, and treating the underlying co- morbidities. MTDD
[2018-05-06] MEDS ORDERED: REGADENOSON INJ 0.4 MG/5 ML DISP.SYRIN IV ONE (15:11)
[2018-05-06] MEDS ORDERED: MAGNESIUM HYDROXIDE SUSP 30 ML UDCUP PO ONE (16:30)
[2018-05-06] MEDS: OXYCODONE-ACETAMINOPHEN 5-325 MG TABLET PO PRN (18:05)
--- NOTE | 2018-05-06 18:27 | PDOC PROGRESS REPORT ---
Subjective Progress Note for:: 05/06/18 Subjective:: No adverse events overnight. No new complaints. Vital signs are stable. She is n.p.o. awaiting her stress test when I saw her this morning. Reason For Visit: CP Physical Exam Vital Signs: Temp Pulse Resp BP Pulse Ox 98.2 F 56 L 16 118/74 99 05/06/18 15:44 05/06/18 15:44 05/06/18 15:44 05/06/18 15:44 05/06/18 15:44 Intake & Output 05/05/18 05/06/18 05/07/18 06:59 06:59 06:59 Intake Total 474 1239 1257 Balance 474 1239 1257 Weight 114.7 kg 116 kg General appearance: PRESENT: no acute distress, cooperative, disheveled, morbidly obese Respiratory exam: PRESENT: clear to auscultation misael, symmetrical, unlabored. ABSENT: rales, rhonchi, tachypnea, wheezes Cardiovascular exam: PRESENT: RRR, +S1, +S2 Vascular exam: PRESENT: normal capillary refill GI/Abdominal exam: PRESENT: normal bowel sounds, soft. ABSENT: distended, guarding, rebound, tenderness Extremities exam: ABSENT: clubbing, pedal edema Musculoskeletal exam: PRESENT: normal inspection. ABSENT: deformity Neurological exam: PRESENT: alert, awake, oriented to person, oriented to place, oriented to time Psychiatric exam: PRESENT: appropriate affect, normal mood Skin exam: PRESENT: dry, warm Results Laboratory Results: 05/05/18 07:05 05/05/18 07:05 05/04/18 05/04/18 05/04/18 19:20 19:20 19:35 Creatine Kinase Cancelled 144 H CK-MB (CK-2) Cancelled Troponin I Cancelled 05/04/18 05/05/18 05/05/18 19:35 01:29 07:05 Creatine Kinase CK-MB (CK-2) 0.92 0.88 0.78 Troponin I < 0.012 < 0.012 < 0.012 05/05/18 05/05/18 07:05 13:18 Creatine Kinase 119 CK-MB (CK-2) 0.72 Troponin I < 0.012 Impressions: Chest X-Ray 05/04/18 00:00 IMPRESSION: NO ACUTE RADIOGRAPHIC FINDING IN THE CHEST. Head CT 05/04/18 18:43 IMPRESSION: NORMAL BRAIN CT WITHOUT CONTRAST. EVIDENCE OF ACUTE STROKE: NO. Assessment & Plan - Diagnosis (1) Chest pain Qualifiers: Chest pain type: unspecified Qualified Code(s): R07.9 - Chest pain, unspecified Is this a current diagnosis for this admission?: Yes Plan: Troponins have been normal. Awaiting stress test results. - Time Time Spent with patient: 15-24 minutes
[2018-05-06] MEDS: ATORVASTATIN CALCIUM 80 MG TABLET PO SCH (21:30)
[2018-05-07] MEDS: DIPHENHYDRAMINE HCL 50 MG/ML VIAL IV PRN ×2 (03:22→09:37)
[2018-05-07] MEDS: AMLODIPINE BESYLATE 10 MG TABLET PO SCH (09:37)
[2018-05-07] MEDS: TRAMADOL HCL 50 MG TABLET PO PRN (09:37)
[2018-05-07] MEDS: LANSOPRAZOLE 15 MG TAB.RAP.DR PO SCH (09:38)
[2018-05-07] MEDS: METOPROLOL SUCCINATE 25 MG TAB.SR.24H PO SCH (09:38)
[2018-05-07 12:28] VITALS: BP 133/74
--- NOTE | 2018-05-07 18:34 | PDOC DISCHARGE SUMMARY ---
General - Admit/Disc Date/PCP Admission Date/Primary Care Provider: 05/04/18 20:39 Discharge Date: 05/07/18 - Discharge Diagnosis (1) Chest pain Is this a current diagnosis for this admission?: Yes Summary: She was brought in overnight and ruled out. She had a stress test that was negative. - Additional Information Resuscitation Status: Full Code Discharge Diet: Diabetic Discharge Activity: Activity As Tolerated Home Medications: Loratadine [Claritin 10 mg Tablet] 10 mg PO DAILY 05/05/18 Losartan/Hydrochlorothiazide [Losartan-Hctz 100-25 mg Tab] 1 each PO DAILY 05/05/18 Metformin HCl [Glucophage 500 mg Tablet] 500 mg PO DAILY 05/05/18 History of Present Illness History of Present Illness: AUGUST GARCIA is a 57 year old female with a past medical history of hypertension who presents with 2 days of intermittent chest pain occurring while at rest, initially sharp becoming dull like a"fist" in nature on the left side with radiation to the jaw. It is associated with palpitations, shortness of breath with exertion but no nausea or vomiting. Patient aspirin and medication for acid reflux without significant improvement. She unable to identify exacerbating factors but in the emergency room receives nitroglycerin which somewhat helps. Patient admits previous stress test of unknown [place] state, greater than year 1 year ago. Hospital Course Hospital Course: She was brought in overnight and ruled out with negative troponins. No events on telemetry. She had a stress test was done that was negative. She will continue on her usual home medications. We discussed dietary and lifestyle modification. Her labs and examination were reassuring she was discharged home today in good condition. Physical Exam Vital Signs: Temp Pulse Resp BP Pulse Ox 97.6 F 60 20 133/74 H 100 05/07/18 12:00 05/07/18 12:00 05/07/18 12:00 05/07/18 12:00 05/07/18 12:00 Intake & Output 05/06/18 05/07/18 05/08/18 06:59 06:59 06:59 Intake Total 1239 1577 Balance 1239 1577 Weight 116 kg 117.2 kg General appearance: PRESENT: no acute distress, cooperative, disheveled, morbidly obese Respiratory exam: PRESENT: clear to auscultation misael, symmetrical, unlabored. ABSENT: rales, rhonchi, tachypnea, wheezes Cardiovascular exam: PRESENT: RRR, +S1, +S2 Vascular exam: PRESENT: normal capillary refill GI/Abdominal exam: PRESENT: normal bowel sounds, soft. ABSENT: distended, guarding, rebound, tenderness Extremities exam: ABSENT: clubbing, pedal edema Musculoskeletal exam: PRESENT: normal inspection. ABSENT: deformity Neurological exam: PRESENT: alert, awake, oriented to person, oriented to place, oriented to time Psychiatric exam: PRESENT: appropriate affect, normal mood Skin exam: PRESENT: dry, warm Results Laboratory Results: 05/05/18 07:05 05/05/18 07:05 05/04/18 05/04/18 05/04/18 19:20 19:20 19:35 Creatine Kinase Cancelled 144 H CK-MB (CK-2) Cancelled Troponin I Cancelled 05/04/18 05/05/18 05/05/18 19:35 01:29 07:05 Creatine Kinase CK-MB (CK-2) 0.92 0.88 0.78 Troponin I < 0.012 < 0.012 < 0.012 05/05/18 05/05/18 07:05 13:18 Creatine Kinase 119 CK-MB (CK-2) 0.72 Troponin I < 0.012 Impressions: Chest X-Ray 05/04/18 00:00 IMPRESSION: NO ACUTE RADIOGRAPHIC FINDING IN THE CHEST. Head CT 05/04/18 18:43 IMPRESSION: NORMAL BRAIN CT WITHOUT CONTRAST. EVIDENCE OF ACUTE STROKE: NO. Qualifiers - * PATIENT BEING DISCHARGED WITH ANY OF THE FOLLOWING DIAGNOSIS: No
--- NOTE | 2018-05-11 15:22 | DRAGON STRESS TEST REPORT ---
Intravenous Lexiscan Cardiolite stress test using single photon emmision computerized tomography. Date of procedure: 05/06/2018. Ordering Provider: Dr. Dakotah Marroquin. Patient's status: Inpatient Indication: Chest pain. Coronary risk factors: Age. Resting EKG: Sinus Rhythm. Minor nonspecific T changes anterior leads. Stress EKG: No changes of ischemia. The patient had no chest pain or discomfort, and there were no arrhythmias seen. Reason for termination: Protocol. Conclusions: Normal EKG and hemodynamic response to IV Lexiscan. Nuclear data: At rest the patient was given 15.17 millicuries of technetium 99m sestamibi injected intravenously. As per protocol rest non gated SPECT images were obtained. Subsequently the patient was given intravenous Lexiscan at a dose of 0.4 mg in 5 mL intravenously, followed by flush with normal saline. Subsequently the stress dose of 46.2 millicuries of technetium 99m sestamibi was injected intravenously. As per protocol stress gated images were obtained. Nuclear interpretation: Review of images showed that all segments of the myocardium had normal perfusion at rest, and normal perfusion post stress with IV Lexiscan. All segments of the myocardium had normal motion, contraction, and thickening by gated study. T. I D. ratio was normal at 1.11. There is no transient ischemic calcification of the left ventricle. Computer read rest, and stress left ventricular ejection fraction were 61 %, and 63 %, respectively. Conclusion: 1. There is no scintigraphic evidence of Lexiscan induced myocardial ischemia. 2. There is no scintigraphic evidence of myocardial infarction/scar. Recommendations: Aggressive risk factor modification, and treating the underlying co- morbidities. [facility]
== END 2018-05-07 14:00 | disposition home or self-care (01) ==
LOC: ER 18:06 → INTOOBSV 20:39 → EH 20:39 → 5 22:41
PROVIDERS: ADMIT Internal Medicine; ATTEND Internal Medicine
DX: R07.89 Other chest pain (principal); R06.02 Shortness of breath; R00.2 Palpitations; I10 Essential (primary) hypertension; E66.01 Morbid (severe) obesity due to excess calories; K21.9 Gastro-esophageal reflux disease without esophagitis; R51 Headache; Z79.84 Long term (current) use of oral hypoglycemic drugs; Z79.899 Other long term (current) drug therapy; Z87.891 Personal history of nicotine dependence; Z82.49 Family history of ischemic heart disease and other diseases of the circulatory system
CPT/HCPCS: 93005; 99285; 96374; 96375; 36415 ×2; 82553 ×2; 82550 ×2; 85025 ×2; 85610; 80048; 80053; 84484 ×2; 83036; 80061; 93017; 71046; 78452; 70450; 93010; G0378 ×5; A9500; J2785; J3490 ×4; J1200 ×3; J3010; J1885; J2405; Q9969

== ENCOUNTER 2018-06-11 01:14 | Emergency (ER) | payer SELFPAY ==
[2018-06-11 01:34] VITALS: BP 173/90
--- NOTE | 2018-06-11 19:54 | EKG REPORT ---
SEVERITY:- NORMAL ECG - SINUS RHYTHM : Confirmed by: Aman Baez MD 11-Jun-2018 19:53:53
== END 2018-06-11 02:59 | disposition left against medical advice (07) ==
LOC: ER 01:14
DX: Z53.21 Procedure and treatment not carried out due to patient leaving prior to being seen by health care provider (principal)
CPT/HCPCS: 93005; 93010

== ENCOUNTER 2019-05-15 04:07 | Emergency (ER) | payer SELFPAY ==
--- NOTE | 2019-05-15 06:26 | RADIOLOGY REPORT (SQ) ---
Chest 2 view on 05/15/2019 at 4:57 AM CLINICAL INDICATION: Chest pain, pain with deep breath COMPARISON: 05/04/2018 FINDINGS: There is slight elevation of the right hemidiaphragm. The lungs are clear. Heart is upper limits normal for size. Hilar and mediastinal contours are within normal limits. Pulmonary vascularity is within normal limits. Degenerative changes are noted in the spine. IMPRESSION: No significant change and no acute disease.
[2019-05-15 07:06] LABS: ABSOLUTE BASOPHILS # (AUTO) 0.2 10^3/uL (0.0-0.2); ABSOLUTE EOSINOPHILS # (AUTO) 0.3 10^3/uL (0.0-0.6); ABSOLUTE LYMPHOCYTES (AUTO) 2.6 10^3/uL (0.5-4.7); ABSOLUTE MONOCYTES (AUTO) 0.6 10^3/uL (0.1-1.4); ABSOLUTE NEUT (AUTO) 6.1 10^3/uL (1.7-8.2); EOSINOPHILS % (AUTO) 2.8 % (0-6); HEMATOCRIT 36.7 % (36.0-47.0); LYMPHOCYTES % (AUTO) 26.3 % (13-45); MEAN CORPUSCULAR HEMOGLOBIN 24.7 pg (27.0-33.4); MEAN CORPUSCULAR HGB CONC 32.6 g/dL (32.0-36.0); MEAN CORPUSCULAR VOLUME 76 fl (80-97); MONOCYTES % (AUTO) 6.4 % (3-13); PLATELET COUNT 290 10^3/uL (150-450); RED BLOOD COUNT 4.86 10^6/uL (3.72-5.28); RED CELL DISTRIBUTION WIDTH 16.2 % (11.5-14.0); SEGMENTED NEUTROPHILS % (AUTO) 62.5 % (42-78); TOTAL CELLS COUNTED % (AUTO) 100 %; WHITE BLOOD COUNT 9.7 10^3/uL (4.0-10.5)
[2019-05-15 07:23] LABS: ALBUMIN 4.2 g/dL (3.5-5.0); ALKALINE PHOSPHATASE 105 U/L (38-126); ANION GAP 10 (5-19); ASPARTATE AMINO TRANSFERASE 22 U/L (14-36); BILIRUBIN,DIRECT 0.3 mg/dL (0.0-0.4); BILIRUBIN,TOTAL 0.4 mg/dL (0.2-1.3); BLOOD UREA NITROGEN 15 mg/dL (7-20); CALCIUM 9.1 mg/dL (8.4-10.2); CARBON DIOXIDE 25 mmol/L (22-30); CHLORIDE 104 mmol/L (98-107); CREATINE KINASE 164 U/L (30-135); GLUCOSE 106 mg/dL (75-110); TOTAL PROTEIN 7.6 g/dL (6.3-8.2)
[2019-05-15 07:34] LABS: CREATINE KINASE MB 1.58 ng/mL (<4.55)
[2019-05-15 07:36] LABS: TROPONIN I < 0.012 ng/mL
--- NOTE | 2019-05-15 08:43 | EKG REPORT ---
SEVERITY:- ABNORMAL ECG - SINUS RHYTHM CONSIDER LEFT VENTRICULAR HYPERTROPHY : Confirmed by: Aman Baez MD 15-May-2019 08:42:47
[2019-05-15] MEDS ORDERED: ONDANSETRON 4 MG TAB.RAPDIS PO ONE (10:42)
[2019-05-15] MEDS ORDERED: ACETAMINOPHEN 325 MG TABLET PO ONE (10:56)
[2019-05-15] MEDS ORDERED: LISINOPRIL 10 MG TABLET PO ONE (11:07)
--- NOTE | 2019-05-15 12:03 | ER Document Report ---
Entered by LIANET CHURCHILL SCRIBE 05/15/19 1021 Acting as scribe for:ARNDALL WALDRON IV, MD ED General - General Chief Complaint: Chest Pain Stated Complaint: CHEST PAIN/TROUBLE BREATHING Mode of Arrival: Ambulatory Information source: Patient Notes: This 58 year old female patient presents to the emergency department today with complaints of multiple symptoms that began with chest pain several weeks ago. Patient states initially she felt a "squeezing under her left breast" and when the pain set in she "felt like she couldn't get a deep breathe". The above chest pain and shortness of breath have been intermittent for weeks along with palpitations, heart racing, "left sided body cramps from head to toe", nausea, vomiting, headache, and anxiety. 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 Patient mentions that she has not been sleeping the past several weeks due to anxiety as well as being up all night to urinate. Patient does add that she has not really been compliant with her lisinopril/HCTZ until about the last 2 months. Patient states that she takes the lisinopril with HCTZ before she goes to bed and is up all night urinating. Patient has a history of CHF or asthma. Patient had a negative Cardiolite stress test in April 2018. TRAVEL OUTSIDE OF THE [place] IN LAST 30 DAYS: No - Related Data Allergies/Adverse Reactions: Penicillins Allergy (Mild, Verified 05/04/18 18:14) Hives shellfish derived Allergy (Mild, Verified 05/04/18 18:14) Hives codeine Adverse Reaction (Intermediate, Verified 05/05/18 12:49) Generalized Itching Past Medical History - General Information source: Patient - Social History Smoking Status: Never Smoker Cigarette use (# per day): No Frequency of alcohol use: None Drug Abuse: None Occupation: Preacher Family History: Reviewed & Not Pertinent Patient has suicidal ideation: No Patient has homicidal ideation: No - Past Medical History Cardiac Medical History: Reports: Hx Atrial Fibrillation - unmedicated, Hx Hypertension - lisinopril-hctz, somewhat compliant GI Medical History: Reports: Hx Gastroesophageal Reflux Disease Musculoskeletal Medical History: Reports Hx Arthritis Past Surgical History: Reports: Hx Hysterectomy, Hx Orthopedic Surgery - back Review of Systems - Review of Systems Constitutional: No symptoms reported EENT: No symptoms reported Cardiovascular: See HPI, Chest pain, Palpitations, Heart racing Respiratory: See HPI, Short of breath Gastrointestinal: See HPI, Nausea, Vomiting. denies: Abdominal pain Genitourinary: No symptoms reported Female Genitourinary: No symptoms reported Musculoskeletal: See HPI, Muscle pain Skin: No symptoms reported Hematologic/Lymphatic: No symptoms reported Neurological/Psychological: See HPI, Anxiety, Headaches -: Yes All other systems reviewed and negative Physical Exam - Vital signs Vitals: Temp Pulse Resp BP Pulse Ox 98.7 F 66 16 178/90 H 96 05/15/19 04:25 05/15/19 04:25 05/15/19 04:25 05/15/19 04:25 05/15/19 04:25 Interpretation: Hypertensive - Notes Notes: Physical Exam: General: Alert, appears well. HEENT: Normocephalic. Atraumatic. PERRL. Extraocular movements intact. Oropharynx clear. Neck: Supple. Non-tender. Respiratory: No respiratory distress. Clear and equal breath sounds bilaterally. Cardiovascular: Regular rate and rhythm. Abdominal: Obese. Non-tender. No distension. Normal Bowel Sounds. Back: No gross abnormalities. Extremities: Moves all four extremities. Upper extremities: Normal inspection. Normal ROM. Lower extremities: Normal inspection. No edema. Normal ROM. Neurological: Normal cognition. AAOx4. Normal speech. Psychological: Anxious Skin: Warm. Dry. Normal color. Course - Re-evaluation Re-evalutation: 05/15/19 13:15 Patient states her chest tightness has improved after breathing treatment. Results of ED MSE discussed with patient. All questions were answered. Emergency signs and symptoms, reasons to return to the emergency department discussed with the patient. - Vital Signs Vital signs: Temp Pulse Resp BP Pulse Ox 98.7 F 66 11 L 154/69 H 97 05/15/19 04:25 05/15/19 04:25 05/15/19 12:06 05/15/19 12:06 05/15/19 12:06 - Laboratory Result Diagrams: 05/15/19 06:50 05/15/19 06:50 Laboratory results interpreted by me: 05/15/19 05/15/19 06:50 06:50 MCV 76 L MCH 24.7 L RDW 16.2 H Creatine Kinase 164 H - EKG Interpretation by Me Additional EKG results interpreted by me: 05/15/19 13:17 EKG performed on 05/15/2019 at 0419 hrs. was interpreted by this MD. Findings: Normal sinus rhythm, rate 67, normal axis, P waves proceed QRS complexes, there are no patterns of ST depression or elevation present to suggest acute myocardial ischemia or infarct. Impression normal sinus rhythm with nonspecific ST segments. Discharge - Discharge Clinical Impression: Bronchitis Hypertension Qualifiers: Hypertension type: unspecified Qualified Code(s): I10 - Essential (primary) hypertension Condition: Good Disposition: HOME, SELF-CARE Additional Instructions: Return to the Emergency Department without delay if any worse. HOME CARE INSTRUCTIONS & INFORMATION: Thank you for choosing us for your medical needs. We hope you're satisfied with the care you received. After you leave, you must properly care for your problem and, at the same time, observe its progress. Any condition can change. Some illnesses can change rapidly over hours or days. If your condition worsens, return to the Emergency Department or see your physician promptly. ABOUT YOUR X-RAYS AND EKG'S: If you had an EKG or X-rays taken, they have been read by the Emergency Physician. The X-rays and EKG's will also be read by a Radiologist or [employer] Engineer within 24 hours. If discrepancies are noted, you will be notified by telephone. Please be certain the ED has a correct telephone number & address where you can be reached. Also, realize that some fractures or abnormalities do not show up on initial X-rays. If your symptoms continue, see your physician. ABOUT YOUR LABORATORY TEST: If you had laboratory tests, the results have been reviewed by the Emergency Physician. Some test results (for example cultures) may not be available for several days. You will be contacted if any test result shows you need additional treatment. Please be certain the ED has a correct telephone number and address where you can be reached. ABOUT YOUR MEDICATIONS: You will receive instructions on how to take your medicine on the prescription label you receive. Additional information may be provided by the Pharmacy. If you have questions afterwards, call the ED for clarification or further instructions. Some prescribed medications may cause drowsiness. Do not perform tasks such as driving a car or operating machinery without consulting your Pharmacist. If you feel you need a refill of pain medi cation, your condition will need re-evaluation. Please do not call for a refill of any medication. ABOUT YOUR SIGNATURE: Signature of this document acknowledges to followin. Understanding that you received emergency treatment and that you may be released before al medical problems are known or treated. Please be certain the ED has a correct phone number & address where you can be reached. 2. Acknowledgement that you will arrange for follow-up care as recommended. 3. Authorization for the Emergency Physician to provide information to your follow-up Physician in order to maximize your care. AT ANY TIME, IF YOUR SYMPTOMS CHANGE SIGNIFICANTLY OR WORSEN OR YOU DEVELOP NEW SYMPTOMS, RETURN TO THE EMERGENCY DEPARTMENT IMMEDIATELY FOR RE-EVALUATION. OUR GOAL IS TO PROVIDE EXCELLENT MEDICAL CARE! WE HOPE THAT WE HAVE MET YOUR EXPECTATIONS DURING YOUR EMERGENCY DEPARTMENT VISIT AND THAT YOU FEEL YOU HAVE RECEIVED EXCELLENT CARE! Bronchitis You have acute bronchitis. This disease is an infection or inflammation of the air passageways in your lungs. Symptoms usually include cough, low grade fever, shortness of breath, and wheezing. The cough usually persists for a couple of weeks. Most cases of bronchitis get better without antibiotics. We prescribe antibiotics when we believe bacteria are damaging your airways, or if there's high risk the bronchitis will worsen into pneumonia. Increase your fluid intake. A cool mist humidifier may make your lungs more comfortable. An expectorant (cough medicine that loosens phlegm) can help. If you smoke, STOP!!! Recovery from bronchitis can be somewhat slow, but you should see improvement within a day or two. Repeated episodes of bronchitis may result in lung damage -- for example, chronic bronchitis, recurrent pneumonias, or emphysema. Call the doctor if you develop increasing fever, shortness of breath, chest pain, bloody sputum, or otherwise worsen. If you have not improved at all after several days, contact the physician. High Blood Pressure When your blood pressure was taken today it was elevated. Today's reading was . Pre-hypertension/Hypertension: The patient has been informed that they may have pre-hypertension or Hypertension based on a blood pressure reading in the emergency department. I recommend that the patient call the primary care provider listed on their discharge instructions or a physician of their choice this week to arrange follow up for further evaluation of possible pre- hypertension or Hypertension. Sometimes, stress or illness causes a temporary elevation of your blood pressure. We suggest that you get your blood pressure measured three more times during the next few days to see if this is more than a temporary abnormality. If your blood pressure is greater than 150/90 on each occasion, you must have treatment. Some simple things you can do to help are: If you have blood pressure medicine but aren't using it regularly, start taking it again. Get some aerobic exercise for at least 20 minutes on a daily basis. (See your doctor before beginning a new exercise program.) Eat a low-fat diet. Lose excess weight. Avoid salty foods and avoid adding salt to any of the foods you eat. Avoid diet pills, decongestants, "energizing" herbs, and other medicines that elevate blood pressure. If left untreated, hypertension greatly enhances your risk for developing heart disease and strokes. Please don't ignore this problem. Prescriptions: Albuterol Sulfate [Albuterol Sulfate Hfa] 8.5 gm IH Q4HP PRN #1 [id number] PRN Reason: Prednisone [Deltasone 20 mg Tablet] 60 mg PO DAILY 5 Days #15 tablet Lisinopril 20 mg PO DAILY #30 tablet Referrals: JAI MOMIN MD [HONORARY] - Follow up as needed I personally performed the services described in the documentation, reviewed and edited the documentation which was dictated to the scribe in my presence, and it accurately records my words and actions.
[2019-05-15] MEDS ORDERED: IPRATROPIUM/ALBUTEROL 0.5-2.5 MG/3 ML AMPUL NEB ONE (12:22)
[2019-05-15 13:52] VITALS: BP 135/69
== END 2019-05-15 13:52 | disposition home or self-care (01) ==
LOC: ER 04:07
DX: J45.909 Unspecified asthma, uncomplicated (principal); I11.0 Hypertensive heart disease with heart failure; I50.9 Heart failure, unspecified; R07.9 Chest pain, unspecified; R06.02 Shortness of breath; R00.2 Palpitations; R11.2 Nausea with vomiting, unspecified; R51 Headache; F41.9 Anxiety disorder, unspecified; Z79.899 Other long term (current) drug therapy
CPT/HCPCS: 93005; 94640; 99285; 36415; 82553; 82550; 85025; 80053; 84484; 71046; 93010; S0119; J7620

== ENCOUNTER 2020-05-15 15:52 | Emergency (ER) | payer MEDICAID ==
--- NOTE | 2020-05-15 16:22 | ER Document Report ---
ED Medical Screen (RME) - General Chief Complaint: Congestion Stated Complaint: COUGH,CONGESTION,SHORT OF BREATH TRAVEL OUTSIDE OF THE [place] IN LAST 30 DAYS: No - HPI Notes: 05/15/20 16:19 Rapid Medical Exam HPI: This is a 59-year-old female complaining of chest pain, shortness of breath, nausea vomiting diarrhea that began this morning. Denies fevers. No known Covid contacts and has never been tested. Has a history of A. fib and is not on blood thinners. Denies history of ACS or PE/DVT. No treatments tried. Physical Exam: GENERAL: ill appearing , nontoxic, well-nourished and in no acute distress. HEAD: Atraumatic, normocephalic. ENT: Moist mucous membranes. RESP: Respirations even and slightly labored CV- alea- rate 51 NEURO: No focal neurological deficits. Moves all extremities spontaneously and on command. My involvement in this patients care was limited to a rapid initial assessment. A comprehensive ED assessment and evaluation of the patient, analysis of test results, treatment, and completion of the medical decision making process will be performed by other ER providers. 05/15/20 16:21 - Related Data Allergies/Adverse Reactions: Penicillins Allergy (Mild, Verified 05/04/18 18:14) Hives shellfish derived Allergy (Mild, Verified 05/04/18 18:14) Hives codeine Adverse Reaction (Intermediate, Verified 05/05/18 12:49) Generalized Itching Past Medical History - Past Medical History Cardiac Medical History: Reports: Hx Atrial Fibrillation - unmedicated, Hx Hypertension - lisinopril-hctz, somewhat compliant Renal/ Medical History: Denies: Hx Peritoneal Dialysis GI Medical History: Reports: Hx Gastroesophageal Reflux Disease Musculoskeltal Medical History: Reports Hx Arthritis Past Surgical History: Reports: Hx Hysterectomy, Hx Orthopedic Surgery - back
--- NOTE | 2020-05-15 17:28 | RADIOLOGY REPORT (SQ) ---
EXAM DESCRIPTION: CHEST SINGLE VIEW IMAGES COMPLETED DATE/TIME: 05/15/2020 5:20 pm REASON FOR STUDY: cough, sob, chest pain. COMPARISON: 05/15/2019 EXAM PARAMETERS: NUMBER OF VIEWS: One view. TECHNIQUE: Single frontal radiographic view of the chest acquired. RADIATION DOSE: NA LIMITATIONS: None. FINDINGS: LUNGS AND PLEURA: No opacities, masses or pneumothorax. No pleural effusion. MEDIASTINUM AND HILAR STRUCTURES: No masses. Contour normal. HEART AND VASCULAR STRUCTURES: Heart normal in size. Normal vasculature. BONES: No acute findings. HARDWARE: None in the chest. OTHER: No other significant finding. IMPRESSION: NO ACUTE RADIOGRAPHIC FINDING IN THE CHEST. RECOMMENDATIONS: Any TECHNICAL DOCUMENTATION: JOB ID: [id number] 2010 [employer]- All Rights Reserved Reading location - IP/workstation name: [email or web address]
[2020-05-15 21:19] LABS: ABSOLUTE BASOPHILS # (AUTO) 0.1 10^3/uL (0.0-0.2); ABSOLUTE LYMPHOCYTES (AUTO) 1.9 10^3/uL (0.5-4.7); ABSOLUTE MONOCYTES (AUTO) 0.5 10^3/uL (0.1-1.4); ABSOLUTE NEUT (AUTO) 10.9 10^3/uL (1.7-8.2); BASOPHILS % (AUTO) 1.1 % (0-2); HEMOGLOBIN 12.4 g/dL (12.0-15.5); LYMPHOCYTES % (AUTO) 13.9 % (13-45); MEAN CORPUSCULAR HEMOGLOBIN 24.8 pg (27.0-33.4); MEAN CORPUSCULAR HGB CONC 32.6 g/dL (32.0-36.0); MEAN CORPUSCULAR VOLUME 76 fl (80-97); MONOCYTES % (AUTO) 3.4 % (3-13); PLATELET COUNT 314 10^3/uL (150-450); RED CELL DISTRIBUTION WIDTH 16.1 % (11.5-14.0); SEGMENTED NEUTROPHILS % (AUTO) 81.6 % (42-78); TOTAL CELLS COUNTED % (AUTO) 100 %; WHITE BLOOD COUNT 13.4 10^3/uL (4.0-10.5)
[2020-05-15 21:27] LABS: ALBUMIN 4.5 g/dL (3.5-5.0); ALKALINE PHOSPHATASE 109 U/L (38-126); ANION GAP 7 (5-19); ASPARTATE AMINO TRANSFERASE 28 U/L (14-36); BILIRUBIN,DIRECT 0.3 mg/dL (0.0-0.4); BILIRUBIN,TOTAL 0.5 mg/dL (0.2-1.3); BLOOD UREA NITROGEN 11 mg/dL (7-20); CALCIUM 9.9 mg/dL (8.4-10.2); CARBON DIOXIDE 28 mmol/L (22-30); CHLORIDE 104 mmol/L (98-107); GLUCOSE 106 mg/dL (75-110); POTASSIUM 4.3 mmol/L (3.6-5.0); TOTAL PROTEIN 8.2 g/dL (6.3-8.2)
[2020-05-15 21:39] LABS: A TYPE INFLUENZA AG NEGATIVE (NEGATIVE); B INFLUENZA AG NEGATIVE (NEGATIVE)
[2020-05-15] MEDS ORDERED: HYDRALAZINE HCL INJ/PF 20 MG/1 ML SDV IV ONE (21:52)
[2020-05-15] MEDS ORDERED: LISINOPRIL 10 MG TABLET PO ONE (22:14)
[2020-05-15] MEDS ORDERED: ONDANSETRON HCL INJ/PF 4 MG/2 ML SDV IV ONE (22:14)
--- NOTE | 2020-05-15 22:40 | ER Document Report ---
Entered by LIANET CHURCHILL SCRIBE 05/15/20 2158 Acting as scribe for:JAVY MONTANEZ DO ED General - General Chief Complaint: Nausea/Vomiting/Diarrhea Stated Complaint: COUGH,CONGESTION,SHORT OF BREATH Time Seen by Provider: 05/15/20 21:28 Mode of Arrival: Ambulatory Information source: Patient Notes: This 59-year-old female patient presents to the emergency department today with complaints of a 3-day history of diarrhea, generalized body aches, dizziness, and vomiting. Patient reports that she has not been tolerating her medications including her blood pressure medicine and she is profoundly hypertensive here. She denies any known sick contacts. TRAVEL OUTSIDE OF THE [place] IN LAST 30 DAYS: No - Related Data Allergies/Adverse Reactions: Penicillins Allergy (Mild, Verified 05/04/18 18:14) Hives shellfish derived Allergy (Mild, Verified 05/04/18 18:14) Hives codeine Adverse Reaction (Intermediate, Verified 05/05/18 12:49) Generalized Itching Home Medications: lisinopril Past Medical History - General Information source: Patient - Social History Smoking Status: Former Smoker Cigarette use (# per day): No Frequency of alcohol use: None Drug Abuse: None Lives with: Family Family History: Reviewed & Not Pertinent - Past Medical History Cardiac Medical History: Reports: Hx Atrial Fibrillation - unmedicated, Hx Hypertension - lisinopril-hctz, somewhat compliant GI Medical History: Reports: Hx Gastroesophageal Reflux Disease Musculoskeletal Medical History: Reports Hx Arthritis Past Surgical History: Reports: Hx Hysterectomy, Hx Orthopedic Surgery - back Review of Systems - Review of Systems Constitutional: No symptoms reported EENT: No symptoms reported Cardiovascular: See HPI, Dizziness Respiratory: No symptoms reported Gastrointestinal: See HPI, Diarrhea, Vomiting Genitourinary: No symptoms reported Female Genitourinary: No symptoms reported Musculoskeletal: See HPI, Muscle pain Skin: No symptoms reported Hematologic/Lymphatic: No symptoms reported Neurological/Psychological: No symptoms reported -: Yes All other systems reviewed and negative Physical Exam - Vital signs Vitals: Temp Pulse Resp BP Pulse Ox 97.6 F 50 L 18 191/98 H 99 05/15/20 16:15 05/15/20 16:15 05/15/20 16:15 05/15/20 16:15 05/15/20 16:15 - Notes Notes: Physical Exam: General: Alert, appears well. HEENT: Normocephalic. Atraumatic. PERRL. Extraocular movements intact. Oropharynx clear. Neck: Supple. Non-tender. Respiratory: No respiratory distress. Clear and equal breath sounds bilaterally. Cardiovascular: Regular rate and rhythm. Abdominal: Obese. Non-tender. No distension. Normal Bowel Sounds. Back: No gross abnormalities. Extremities: Moves all four extremities. Upper extremities: Normal inspection. Normal ROM. Lower extremities: Normal inspection. No edema. Normal ROM. Neurological: Normal cognition. AAOx4. Normal speech. Psychological: Normal affect. Normal Mood. Skin: Warm. Dry. Normal color. Course - Re-evaluation Re-evalutation: 05/16/20 01:14 MDM 59 year old female with htn and gi illness. She is improved and BP is better at recheck. Discussed follow up - she has no local PCP, moved form [facility] and now lives locally. - Vital Signs Vital signs: Temp Pulse Resp BP Pulse Ox 98.5 F 50 L 17 190/90 H 99 05/15/20 23:17 05/16/20 00:46 05/15/20 23:17 05/15/20 23:17 05/15/20 23:17 - Laboratory Results Result Diagrams: 05/15/20 20:48 05/15/20 20:48 Laboratory Results Interpreted: 05/15/20 05/15/20 20:48 23:00 WBC 13.4 H MCV 76 L MCH 24.8 L RDW 16.1 H Absolute Neuts (auto) 10.9 H Seg Neutrophils % 81.6 H Urine Protein 30 H Urine Blood MODERATE H Critical Laboratory Results Reviewed: No Critical Results - Radiology Results Critical Radiology Results Reviewed: No Critical Results Discharge - Discharge Clinical Impression: Nausea Diarrhea Qualifiers: Diarrhea type: unspecified type Qualified Code(s): R19.7 - Diarrhea, unspecified Hypertension Qualifiers: Hypertension type: unspecified Qualified Code(s): I10 - Essential (primary) hypertension Condition: Stable Disposition: HOME, SELF-CARE Instructions: COVID-19 Guidance for Persons Under Investigation, Acetaminophen, Antinausea Medication ([facility]), Vomiting ([facility]), Diarrhea, Nonspecific ([facility]), Family Physicians / Practices Additional Instructions: Rest, No work until covid test is back and negative and you feel better. Take medicine for nausea as needed. Return here for fever that does not go down with tylenol, chest pain, shortness of breath, or other problems or concerns. Medicine was sent to [facility] in [place]. Forms: Elevated Blood Pressure I personally performed the services described in the documentation, reviewed and edited the documentation which was dictated to the scribe in my presence, and it accurately records my words and actions.
[2020-05-15] MEDS ORDERED: ENALAPRILAT DIHYDRATE INJ/PF 2.5 MG/2 ML SDV IV ONE (22:42)
[2020-05-16] MEDS ORDERED: ENALAPRILAT DIHYDRATE INJ/PF 2.5 MG/2 ML SDV IV ONE (00:30)
[2020-05-16 00:48] LABS: APPEARANCE,URINE SLIGHTLY-CLOUDY; BILIRUBIN,URINE NEGATIVE (NEGATIVE); COLOR,URINE YELLOW; GLUCOSE, URINE NEGATIVE (NEGATIVE); KETONES,URINE NEGATIVE (NEGATIVE); PROTEIN,URINE 30 mg/dL (NEGATIVE); URINE SPECIFIC GRAVITY 1.019; UROBILINOGEN,URINE NEGATIVE mg/dL (<2.0)
[2020-05-16] MEDS ORDERED: IBUPROFEN 400 MG TABLET PO ONE (01:20)
[2020-05-16] MEDS ORDERED: HYDROCODONE/ACETAMINOPHEN 5-325 MG (6 TAB/ER DISP) PO PRN (02:32)
[2020-05-16 02:45] VITALS: BP 165/89
--- NOTE | 2020-05-16 10:33 | EKG REPORT ---
SEVERITY:- NORMAL ECG - SINUS RHYTHM : Confirmed by: Dash Bright 16-May-2020 10:32:34
== END 2020-05-16 03:10 | disposition home or self-care (01) ==
LOC: ER 15:52
DX: R11.2 Nausea with vomiting, unspecified (principal); R19.7 Diarrhea, unspecified; R42 Dizziness and giddiness; I10 Essential (primary) hypertension; Z79.899 Other long term (current) drug therapy; Z88.0 Allergy status to penicillin; Z91.013 Allergy to seafood; Z87.891 Personal history of nicotine dependence; Z20.822 Contact with and (suspected) exposure to COVID-19
CPT/HCPCS: 93005; 99285; 96374; 36415; 85025; 87635; 80053; 81001; 84484; 87804; 71045; 93010; J2405; J3490; C9803